=== PATIENT | female | born 1940 | race Caucasian/White ===

== ENCOUNTER 2021-04-09 12:09 | Inpatient (IN) | payer MEDICARE ==
[2021-04-09 15:33] VITALS: BMI 37.2
[2021-04-09] MEDS ORDERED: hydrALAZINE 20 MG/ML VIAL SLOW IVP PRN (15:52)
[2021-04-09 16:54] LABS: #Monocytes 0.5 thou/uL (0.11-0.59); #Neutrophils 4.2 thou/uL (1.40-6.50); %Basophils 0.2 % (0.0-1.0); %Eosinophils 0.7 % (0.0-10.0); %Lymphocytes 17.3 % (21.0-51.0); %Monocytes 8.3 % (0.0-10.0); %Neutrophils 73.5 % (42.0-75.0); Hemoglobin 14.3 g/dL (12.0-16.0); Mean Corpuscular HGB CONC 33.2 g/dL (32.0-36.0); Mean Platelet Volume 8.1 fL (7.4-10.4); Platelet Count 156 thou/uL (130-400); RBC Distribution Width 11.8 % (11.5-14.5); Red Blood Cell (RBC) Count 3.99 mill/uL (4.20-5.40); White Blood Cell (WBC) Count 5.8 thou/uL (4.8-10.8)
[2021-04-09 17:04] LABS: INR-International Normal Ratio 1.7; PTT 38.6 sec (22.9-36.1); Prothrombin Time 19.9 sec (12.0-14.7)
[2021-04-09 17:15] LABS: Anion Gap 12 mmol/L (10-20); BUN (Urea Nitrogen) 11 mg/dL (9.8-20.1); Calc. Creatinine Clearance 86 mL/min (70-130); Calcium 9.4 mg/dL (7.8-10.44); Carbon Dioxide 21 mmol/L (23-31); Chloride 109 mmol/L (98-107); Glucose 111 mg/dL (83-110); MDiff Complete? YES; Macrocytosis SLIGHT = 6-15 cells (100X) (0-5/hpf); Magnesium 2.1 mg/dL (1.6-2.6); Phosphorus 2.8 mg/dL (2.3-4.7); Platelet Morphology Comment Appears Adequate; Sodium 138 mmol/L (136-145)
[2021-04-09] MEDS: Acetaminophen 500 MG TAB PO SCH ×2 (17:28→21:01)
[2021-04-09] MEDS ORDERED: Nitroglycerin 0.4 MG TAB (25 Tab Bottle) SL PRN (17:31)
[2021-04-09] MEDS ORDERED: Dexamethasone 12 MG in Sodium Chloride 0.9% 50 ML IVPB SCH (20:00)
[2021-04-09] MEDS ORDERED: Famotidine/PF 20 mg/2ml Vial SLOW IVP SCH (21:00)
[2021-04-09] MEDS ORDERED: Metoprolol Tartrate 50 MG TAB PO SCH (21:00)
[2021-04-10] MEDS: Acetaminophen 500 MG TAB PO SCH ×4 (05:41→20:46)
[2021-04-10] MEDS: Levothyroxine Sodium 112 MCG TAB PO SCH (05:55)
[2021-04-10] MEDS: Dexamethasone 4 MG TAB PO SCH ×4 (05:55→23:43)
[2021-04-10 06:24] LABS: #Lymphocytes 0.7 thou/uL (1.20-3.40); #Monocytes 0.1 thou/uL (0.11-0.59); #Neutrophils 3.6 thou/uL (1.40-6.50); %Basophils 0.2 % (0.0-1.0); %Eosinophils 0.1 % (0.0-10.0); %Lymphocytes 15.8 % (21.0-51.0); %Monocytes 1.1 % (0.0-10.0); %Neutrophils 82.8 % (42.0-75.0); Hemoglobin 14.4 g/dL (12.0-16.0); Mean Corpuscular HGB CONC 34.2 g/dL (32.0-36.0); Mean Corpuscular Hemoglobin 36.4 pg (27.0-31.0); Mean Platelet Volume 8.2 fL (7.4-10.4); Platelet Count 155 thou/uL (130-400); RBC Distribution Width 11.7 % (11.5-14.5); Red Blood Cell (RBC) Count 3.97 mill/uL (4.20-5.40); White Blood Cell (WBC) Count 4.3 thou/uL (4.8-10.8)
[2021-04-10 06:44] LABS: Anion Gap 10 mmol/L (10-20); BUN (Urea Nitrogen) 17 mg/dL (9.8-20.1); Calc. Creatinine Clearance 82 mL/min (70-130); Calcium 9.3 mg/dL (7.8-10.44); Carbon Dioxide 23 mmol/L (23-31); Chloride 107 mmol/L (98-107); Glucose 145 mg/dL (83-110); Potassium 4.2 mmol/L (3.5-5.1); Sodium 136 mmol/L (136-145)
[2021-04-10] MEDS ORDERED: Dexamethasone 4 MG TAB PO SCH (08:00)
[2021-04-10] MEDS: Metoprolol Tartrate 50 MG TAB PO SCH ×2 (09:27→20:47)
[2021-04-10] MEDS: Furosemide 40 MG TAB PO SCH (09:28)
[2021-04-10] MEDS: Potassium Chloride 20 MEQ TAB PO SCH (09:28)
[2021-04-10] MEDS: Pantoprazole 40 MG VIAL IVP SCH ×2 (11:25→20:47)
[2021-04-10 18:19] LABS: Bacteria/HPF None Seen HPF (None Seen); Bilirubin Negative (Negative); Blood, Urine Trace (Negative); Clarity Clear (Clear); Glucose, Urine (Dipstick) Normal (Negative); Ketone, Urine Negative (Negative); Leukocyte Negative Leu/uL (Negative); Nitrite Negative (Negative); Protein, Urine (Dipstick) Negative (Neg-Trace); RBC/HPF 0-3 HPF (0-3); Squamous Epithelial None Seen HPF (0-3); Urobilinogen Normal mg/dL (Less than 2); WBC/HPF 0-3 HPF (0-3)
[2021-04-10 18:21] LABS: Urine Culture Reflex No No
[2021-04-10] MEDS: Senokot S 8.6-50 MG TAB PO SCH (20:47)
[2021-04-11] MEDS: Acetaminophen 500 MG TAB PO SCH ×4 (05:21→20:29)
[2021-04-11] MEDS: Levothyroxine Sodium 112 MCG TAB PO SCH (05:22)
[2021-04-11] MEDS: Dexamethasone 4 MG TAB PO SCH ×4 (05:22→23:15)
[2021-04-11] MEDS: Furosemide 40 MG TAB PO SCH (09:38)
[2021-04-11] MEDS: Senokot S 8.6-50 MG TAB PO SCH ×2 (09:38→20:28)
[2021-04-11] MEDS: Potassium Chloride 20 MEQ TAB PO SCH (09:38)
[2021-04-11] MEDS: Metoprolol Tartrate 50 MG TAB PO SCH ×2 (09:38→20:28)
[2021-04-11] MEDS: Pantoprazole 40 MG VIAL IVP SCH (09:39)
[2021-04-11] MEDS: Polyethylene Glycol 3350 17 GM Packet PO SCH (09:39)
[2021-04-11 13:00] LABS: INR-International Normal Ratio 1.2; Prothrombin Time 15.4 sec (12.0-14.7)
[2021-04-12] MEDS: Acetaminophen 500 MG TAB PO SCH ×4 (05:01→20:49)
[2021-04-12] MEDS: Dexamethasone 4 MG TAB PO SCH ×3 (05:01→17:36)
[2021-04-12] MEDS: Levothyroxine Sodium 112 MCG TAB PO SCH (05:01)
[2021-04-12 06:56] LABS: INR-International Normal Ratio 1.1; PTT 28.3 sec (22.9-36.1); Prothrombin Time 14.7 sec (12.0-14.7)
[2021-04-12] MEDS: Polyethylene Glycol 3350 17 GM Packet PO SCH (09:31)
[2021-04-12] MEDS: Potassium Chloride 20 MEQ TAB PO SCH (09:31)
[2021-04-12] MEDS: Metoprolol Tartrate 50 MG TAB PO SCH ×2 (09:31→20:49)
[2021-04-12] MEDS: Furosemide 40 MG TAB PO SCH (09:31)
[2021-04-12] MEDS: Senokot S 8.6-50 MG TAB PO SCH ×2 (09:31→20:49)
[2021-04-12] MEDS ORDERED: Bisacodyl 10 MG SUPP PR PRN (11:23)
[2021-04-12] MEDS: Ondansetron PF 4 MG/2 ML Vial IVP PRN (14:33)
[2021-04-12] MEDS ORDERED: Mineral Oil ENEMA PR SCH (21:45)
[2021-04-13] MEDS: Dexamethasone 4 MG TAB PO SCH ×5 (00:38→23:43)
[2021-04-13] MEDS: Acetaminophen 500 MG TAB PO SCH ×4 (04:54→21:15)
[2021-04-13] MEDS: Levothyroxine Sodium 112 MCG TAB PO SCH (04:55)
[2021-04-13 06:10] LABS: #Lymphocytes 0.6 thou/uL (1.20-3.40); #Monocytes 0.7 thou/uL (0.11-0.59); #Neutrophils 9.8 thou/uL (1.40-6.50); %Basophils 0.1 % (0.0-1.0); %Eosinophils 0.2 % (0.0-10.0); %Lymphocytes 5.7 % (21.0-51.0); %Monocytes 5.8 % (0.0-10.0); %Neutrophils 88.1 % (42.0-75.0); Hemoglobin 14.5 g/dL (12.0-16.0); Mean Corpuscular HGB CONC 33.1 g/dL (32.0-36.0); Mean Corpuscular Hemoglobin 35.3 pg (27.0-31.0); Mean Platelet Volume 8.6 fL (7.4-10.4); Platelet Count 197 thou/uL (130-400); RBC Distribution Width 11.7 % (11.5-14.5); Red Blood Cell (RBC) Count 4.11 mill/uL (4.20-5.40); White Blood Cell (WBC) Count 11.1 thou/uL (4.8-10.8)
[2021-04-13 06:19] LABS: INR-International Normal Ratio 1.1; PTT 26.6 sec (22.9-36.1); Prothrombin Time 14.6 sec (12.0-14.7)
[2021-04-13 06:29] LABS: Anion Gap 10 mmol/L (10-20); BUN (Urea Nitrogen) 33 mg/dL (9.8-20.1); Calc. Creatinine Clearance 60 mL/min (70-130); Calcium 8.9 mg/dL (7.8-10.44); Carbon Dioxide 27 mmol/L (23-31); Chloride 103 mmol/L (98-107); Glucose 129 mg/dL (83-110); Magnesium 2.3 mg/dL (1.6-2.6); Phosphorus 3.5 mg/dL (2.3-4.7); Potassium 4.1 mmol/L (3.5-5.1); Sodium 136 mmol/L (136-145)
[2021-04-13] MEDS: Furosemide 40 MG TAB PO SCH (09:03)
[2021-04-13] MEDS: Senokot S 8.6-50 MG TAB PO SCH ×2 (09:03→21:15)
[2021-04-13] MEDS: Polyethylene Glycol 3350 17 GM Packet PO SCH (09:03)
[2021-04-13] MEDS: Metoprolol Tartrate 50 MG TAB PO SCH ×2 (09:03→21:15)
[2021-04-13] MEDS: Potassium Chloride 20 MEQ TAB PO SCH (09:03)
[2021-04-13] MEDS ORDERED: Bisacodyl 10 MG SUPP PR SCH (10:15)
[2021-04-14] MEDS: Acetaminophen 500 MG TAB PO SCH ×2 (04:59→09:08)
[2021-04-14] MEDS: Levothyroxine Sodium 112 MCG TAB PO SCH (05:00)
[2021-04-14] MEDS: Dexamethasone 4 MG TAB PO SCH ×3 (05:00→17:26)
[2021-04-14 06:16] LABS: #Lymphocytes 0.7 thou/uL (1.20-3.40); #Monocytes 0.8 thou/uL (0.11-0.59); #Neutrophils 9.7 thou/uL (1.40-6.50); %Basophils 0.4 % (0.0-1.0); %Eosinophils 0.1 % (0.0-10.0); %Lymphocytes 6.6 % (21.0-51.0); %Monocytes 6.8 % (0.0-10.0); %Neutrophils 86.2 % (42.0-75.0); Hemoglobin 15.1 g/dL (12.0-16.0); Mean Corpuscular HGB CONC 33.2 g/dL (32.0-36.0); Mean Corpuscular Hemoglobin 35.5 pg (27.0-31.0); Mean Platelet Volume 8.6 fL (7.4-10.4); Platelet Count 188 thou/uL (130-400); RBC Distribution Width 11.5 % (11.5-14.5); Red Blood Cell (RBC) Count 4.25 mill/uL (4.20-5.40); White Blood Cell (WBC) Count 11.2 thou/uL (4.8-10.8)
[2021-04-14 06:24] LABS: Phosphorus 3.4 mg/dL (2.3-4.7)
[2021-04-14 06:26] LABS: Anion Gap 14 mmol/L (10-20); BUN (Urea Nitrogen) 32 mg/dL (9.8-20.1); Calc. Creatinine Clearance 62 mL/min (70-130); Calcium 8.8 mg/dL (7.8-10.44); Carbon Dioxide 26 mmol/L (23-31); Chloride 100 mmol/L (98-107); Glucose 142 mg/dL (83-110); Magnesium 2.5 mg/dL (1.6-2.6); Potassium 4.2 mmol/L (3.5-5.1); Sodium 136 mmol/L (136-145)
[2021-04-14] MEDS ORDERED: Acetaminophen/Codeine 30-300mg Tablet PO PRN (08:03)
[2021-04-14] MEDS ORDERED: HYDROcodone/Acetaminophen 7.5/325 mg Tablet PO PRN (08:04)
[2021-04-14] MEDS ORDERED: HYDROcodone/Acetaminophen 10/325 mg Tablet PO PRN (08:05)
[2021-04-14] MEDS: Bisacodyl 10 MG SUPP PR SCH (09:08)
[2021-04-14] MEDS: Metoprolol Tartrate 50 MG TAB PO SCH ×2 (09:08→21:33)
[2021-04-14] MEDS: Polyethylene Glycol 3350 17 GM Packet PO SCH (09:08)
[2021-04-14] MEDS: Senokot S 8.6-50 MG TAB PO SCH ×2 (09:08→21:34)
[2021-04-14] MEDS: Acetaminophen 325 MG TAB PO SCH ×3 (09:49→21:33)
[2021-04-14] MEDS: Ondansetron PF 4 MG/2 ML Vial IVP PRN (11:01)
[2021-04-14] MEDS: CEFAZOLIN 2 GM, IV Admixture Fee-Chemo 1 UNITS in Sodium Chloride 0.9% 100 ML IVPB SCH ×2 (15:16→21:34)
[2021-04-14] MEDS ORDERED: Sodium Chloride 0.9% 1,000 ML IV SCH (23:00)
[2021-04-15] MEDS: Dexamethasone 4 MG TAB PO SCH ×5 (00:21→23:30)
[2021-04-15] MEDS: hydrALAZINE 20 MG/ML VIAL SLOW IVP PRN ×2 (04:13→14:50)
[2021-04-15] MEDS: Acetaminophen 325 MG TAB PO SCH ×3 (04:14→17:07)
[2021-04-15] MEDS ORDERED: CEFAZOLIN 2 GM, Admixture Fee 1 EACH in Sodium Chloride 0.9% 100 ML IVPB SCH (06:00)
[2021-04-15] MEDS ORDERED: EPINEPHrine 1 MG/ML AMP ONE (06:13)
[2021-04-15] MEDS ORDERED: Bacitracin Zinc Ointment 30 gm TUBE ONE (06:13)
[2021-04-15] MEDS ORDERED: Neomycin-Polymyxin 1 ML AMP ONE (06:13)
[2021-04-15] MEDS ORDERED: Thrombin 5000 UNITS/5 ML VIAL ONE (06:13)
[2021-04-15] MEDS ORDERED: Bupivacaine PF 0.5% 30 ML VIAL ONE (06:13)
[2021-04-15] MEDS: Levothyroxine Sodium 112 MCG TAB PO SCH (06:16)
[2021-04-15 06:40] LABS: #Basophils 0.1 thou/uL (0.0-0.2); #Lymphocytes 0.6 thou/uL (1.20-3.40); #Monocytes 0.7 thou/uL (0.11-0.59); #Neutrophils 10.8 thou/uL (1.40-6.50); %Eosinophils 0.1 % (0.0-10.0); %Lymphocytes 4.7 % (21.0-51.0); %Monocytes 5.6 % (0.0-10.0); %Neutrophils 88.6 % (42.0-75.0); Hemoglobin 16.4 g/dL (12.0-16.0); Mean Corpuscular HGB CONC 33.5 g/dL (32.0-36.0); Mean Corpuscular Hemoglobin 35.2 pg (27.0-31.0); Mean Platelet Volume 9.2 fL (7.4-10.4); Platelet Count 156 thou/uL (130-400); RBC Distribution Width 11.6 % (11.5-14.5); Red Blood Cell (RBC) Count 4.67 mill/uL (4.20-5.40); White Blood Cell (WBC) Count 12.2 thou/uL (4.8-10.8)
[2021-04-15 06:59] LABS: Phosphorus 3.1 mg/dL (2.3-4.7)
[2021-04-15 07:02] LABS: Anion Gap 14 mmol/L (10-20); BUN (Urea Nitrogen) 28 mg/dL (9.8-20.1); Calc. Creatinine Clearance 69 mL/min (70-130); Calcium 8.9 mg/dL (7.8-10.44); Carbon Dioxide 22 mmol/L (23-31); Chloride 104 mmol/L (98-107); Glucose 138 mg/dL (83-110); Magnesium 2.6 mg/dL (1.6-2.6); Potassium 3.9 mmol/L (3.5-5.1); Sodium 136 mmol/L (136-145)
[2021-04-15] MEDS ORDERED: PROPOFOL 200 MG/20 ML VIAL ONE (07:11)
[2021-04-15] MEDS ORDERED: Dexamethasone 20 MG/5 ML VIAL ONE (07:11)
[2021-04-15] MEDS ORDERED: Rocuronium Bromide 10 MG/ML (10ML VIAL) ONE (07:11)
[2021-04-15] MEDS ORDERED: Esmolol 100 MG/10 ML VIAL ONE (07:11)
[2021-04-15] MEDS ORDERED: Phenylephrine 10 MG/ML VIAL ONE (07:11)
[2021-04-15] MEDS ORDERED: Glycopyrrolate 0.2 MG/ML 5 ML SYRINGE ONE (07:11)
[2021-04-15] MEDS ORDERED: Lidocaine 1% PF 5 ML VIAL ONE (07:11)
[2021-04-15] MEDS ORDERED: Ondansetron PF 4 MG/2 ML Vial ONE (07:11)
[2021-04-15] MEDS: CEFAZOLIN 2 GM, IV Admixture Fee-Chemo 1 UNITS in Sodium Chloride 0.9% 100 ML IVPB SCH (07:35)
[2021-04-15] MEDS ORDERED: Sodium Chloride 0.9% 1,000 ML IV SCH ×3 (07:40→23:00)
[2021-04-15] MEDS ORDERED: Fentanyl 100 MCG/2 ML VIAL ONE ×2 (07:48→10:03)
[2021-04-15] MEDS: Bisacodyl 10 MG SUPP PR SCH (08:34)
[2021-04-15] MEDS: Metoprolol Tartrate 50 MG TAB PO SCH ×2 (08:35→19:41)
[2021-04-15] MEDS: Polyethylene Glycol 3350 17 GM Packet PO SCH (08:36)
[2021-04-15] MEDS: Senokot S 8.6-50 MG TAB PO SCH ×2 (08:36→19:41)
[2021-04-15] MEDS ORDERED: HYDROmorphone 2 MG/ML VIAL SLOW IVP PRN (08:43)
[2021-04-15] MEDS ORDERED: Promethazine HCl 25 MG/ML VIAL IVPB PRN (08:43)
[2021-04-15] MEDS ORDERED: Ondansetron HCl/PF 4 MG/2 ML Vial IVP PRN (08:43)
[2021-04-15] MEDS ORDERED: Promethazine HCl 25 MG/ML VIAL IM PRN (08:43)
[2021-04-15] MEDS ORDERED: Potassium Phosphate 15 MMOL in Sodium Chloride 0.9% 250 ML 250 ML IVPB SCH (09:00)
[2021-04-15] MEDS ORDERED: Acetaminophen/Codeine 30-300mg Tablet PO PRN ×2 (09:15→12:00)
[2021-04-15] MEDS ORDERED: SUGAMMADEX SODIUM 200 MG/2 ML VIAL ONE (09:34)
[2021-04-15] MEDS ORDERED: Metoprolol Tartrate 5 MG/5 ML VIAL ONE (10:21)
[2021-04-15] MEDS ORDERED: HYDROmorphone 2 MG/ML VIAL ONE (10:21)
[2021-04-15] MEDS ORDERED: hydrALAZINE 20 MG/ML VIAL ONE (11:01)
[2021-04-15] MEDS ORDERED: Promethazine HCl 25 MG/ML VIAL ONE (11:08)
[2021-04-15] MEDS: Sodium Chloride 0.9% 1,000 ML IV SCH ×3 (11:08→19:40)
[2021-04-15] MEDS ORDERED: Scopolamine 1.5 mg/72 hour Patch ONE (11:14)
[2021-04-15] MEDS ORDERED: HYDROcodone/Acetaminophen 7.5/325 mg Tablet PO PRN (12:00)
[2021-04-15] MEDS ORDERED: HYDROcodone/Acetaminophen 10/325 mg Tablet PO PRN (12:00)
[2021-04-15] MEDS: ceFAZolin Sodium/D5W 2 GM in Premix Bag 1 BAG IVPB SCH ×2 (14:43→19:41)
[2021-04-15] MEDS ORDERED: ceFAZolin 2 GM/DEX 5% 100 ML BAG IVPB SCH (16:00)
[2021-04-15] MEDS ORDERED: Acetaminophen 500 MG TAB PO SCH (19:00)
[2021-04-15] MEDS ORDERED: Acetaminophen/Codeine 30-300mg Tablet PO SCH (19:00)
[2021-04-15] MEDS: Acetaminophen 500 MG TAB PO SCH (23:30)
[2021-04-15] MEDS: Acetaminophen/Codeine 30-300mg Tablet PO SCH (23:30)
[2021-04-16] MEDS: Acetaminophen/Codeine 30-300mg Tablet PO SCH ×4 (05:09→23:00)
[2021-04-16] MEDS: Acetaminophen 500 MG TAB PO SCH ×4 (05:09→23:00)
[2021-04-16] MEDS: Dexamethasone 4 MG TAB PO SCH (05:09)
[2021-04-16] MEDS: Levothyroxine Sodium 112 MCG TAB PO SCH (05:10)
[2021-04-16 05:36] LABS: Anion Gap 13 mmol/L (10-20); BUN (Urea Nitrogen) 26 mg/dL (9.8-20.1); Calc. Creatinine Clearance 79 mL/min (70-130); Calcium 8.1 mg/dL (7.8-10.44); Carbon Dioxide 22 mmol/L (23-31); Chloride 105 mmol/L (98-107); Glucose 124 mg/dL (83-110); Magnesium 2.5 mg/dL (1.6-2.6); Phosphorus 3.5 mg/dL (2.3-4.7); Potassium 4.2 mmol/L (3.5-5.1); Sodium 136 mmol/L (136-145)
[2021-04-16 05:54] LABS: #Lymphocytes 0.7 thou/uL (1.20-3.40); #Monocytes 1.6 thou/uL (0.11-0.59); #Neutrophils 16.5 thou/uL (1.40-6.50); %Eosinophils 0.1 % (0.0-10.0); %Lymphocytes 3.8 % (21.0-51.0); %Monocytes 8.5 % (0.0-10.0); %Neutrophils 87.6 % (42.0-75.0); Hemoglobin 14.9 g/dL (12.0-16.0); Mean Corpuscular Hemoglobin 34.8 pg (27.0-31.0); Mean Platelet Volume 8.7 fL (7.4-10.4); Platelet Count 94 thou/uL (130-400); Platelet Morphology Comment Appears Decreased; RBC Distribution Width 11.6 % (11.5-14.5); Red Blood Cell (RBC) Count 4.28 mill/uL (4.20-5.40); White Blood Cell (WBC) Count 18.8 thou/uL (4.8-10.8)
[2021-04-16] MEDS: Polyethylene Glycol 3350 17 GM Packet PO SCH (09:00)
[2021-04-16] MEDS: Bisacodyl 10 MG SUPP PR SCH (09:00)
[2021-04-16] MEDS: Metoprolol Tartrate 50 MG TAB PO SCH ×2 (09:00→20:27)
[2021-04-16] MEDS: Senokot S 8.6-50 MG TAB PO SCH ×2 (09:00→20:27)
[2021-04-16] MEDS: Dexamethasone 1 MG TAB PO SCH ×4 (10:53→20:26)
[2021-04-16] MEDS: Sodium Chloride 0.9% 1,000 ML IV SCH (16:08)
[2021-04-16] MEDS: tiZANidine HCl 4 MG TAB PO PRN (23:28)
[2021-04-16] MEDS: hydrALAZINE 20 MG/ML VIAL SLOW IVP PRN (23:37)
[2021-04-17] MEDS: Sodium Chloride 0.9% 1,000 ML IV SCH ×2 (00:56→13:47)
[2021-04-17] MEDS: Acetaminophen 500 MG TAB PO SCH ×3 (04:48→17:23)
[2021-04-17] MEDS: Acetaminophen/Codeine 30-300mg Tablet PO SCH ×3 (04:48→18:45)
[2021-04-17] MEDS: Levothyroxine Sodium 112 MCG TAB PO SCH (05:49)
[2021-04-17 06:08] LABS: #Lymphocytes 0.8 thou/uL (1.20-3.40); #Monocytes 1.2 thou/uL (0.11-0.59); #Neutrophils 9.5 thou/uL (1.40-6.50); %Basophils 0.1 % (0.0-1.0); %Eosinophils 0.1 % (0.0-10.0); %Lymphocytes 6.6 % (21.0-51.0); %Monocytes 10.1 % (0.0-10.0); Hemoglobin 13.1 g/dL (12.0-16.0); Mean Corpuscular HGB CONC 32.4 g/dL (32.0-36.0); Mean Corpuscular Hemoglobin 34.8 pg (27.0-31.0); Mean Platelet Volume 9.5 fL (7.4-10.4); Platelet Count 79 thou/uL (130-400); RBC Distribution Width 11.7 % (11.5-14.5); Red Blood Cell (RBC) Count 3.77 mill/uL (4.20-5.40); White Blood Cell (WBC) Count 11.5 thou/uL (4.8-10.8)
[2021-04-17 06:41] LABS: Anion Gap 10 mmol/L (10-20); BUN (Urea Nitrogen) 27 mg/dL (9.8-20.1); Calc. Creatinine Clearance 92 mL/min (70-130); Calcium 8.2 mg/dL (7.8-10.44); Carbon Dioxide 23 mmol/L (23-31); Chloride 108 mmol/L (98-107); Glucose 119 mg/dL (83-110); Magnesium 2.6 mg/dL (1.6-2.6); Phosphorus 2.3 mg/dL (2.3-4.7); Potassium 4.3 mmol/L (3.5-5.1); Sodium 137 mmol/L (136-145)
[2021-04-17] MEDS: Polyethylene Glycol 3350 17 GM Packet PO SCH (08:50)
[2021-04-17] MEDS: Dexamethasone 1 MG TAB PO SCH ×4 (08:50→20:39)
[2021-04-17] MEDS: Senokot S 8.6-50 MG TAB PO SCH ×2 (08:50→20:39)
[2021-04-17] MEDS: Bisacodyl 10 MG SUPP PR SCH (08:55)
[2021-04-17] MEDS: tiZANidine HCl 4 MG TAB PO PRN (08:55)
[2021-04-17] MEDS: Metoprolol Tartrate 50 MG TAB PO SCH ×3 (08:55→20:39)
[2021-04-18] MEDS: Acetaminophen 500 MG TAB PO SCH ×4 (00:01→17:04)
[2021-04-18] MEDS: Acetaminophen/Codeine 30-300mg Tablet PO SCH ×4 (00:01→17:05)
[2021-04-18 05:46] LABS: #Lymphocytes 0.7 thou/uL (1.20-3.40); #Monocytes 0.7 thou/uL (0.11-0.59); #Neutrophils 6.7 thou/uL (1.40-6.50); %Eosinophils 0.2 % (0.0-10.0); %Lymphocytes 8.2 % (21.0-51.0); %Monocytes 8.8 % (0.0-10.0); %Neutrophils 82.7 % (42.0-75.0); Hemoglobin 13.2 g/dL (12.0-16.0); Mean Corpuscular HGB CONC 31.3 g/dL (32.0-36.0); Mean Corpuscular Hemoglobin 34.4 pg (27.0-31.0); Mean Platelet Volume 9.1 fL (7.4-10.4); Platelet Count 73 thou/uL (130-400); RBC Distribution Width 11.6 % (11.5-14.5); Red Blood Cell (RBC) Count 3.85 mill/uL (4.20-5.40); White Blood Cell (WBC) Count 8.1 thou/uL (4.8-10.8)
[2021-04-18] MEDS: Sodium Chloride 0.9% 1,000 ML IV SCH ×3 (05:48→15:34)
[2021-04-18] MEDS: Levothyroxine Sodium 112 MCG TAB PO SCH (05:49)
[2021-04-18] MEDS: Polyethylene Glycol 3350 17 GM Packet PO SCH (08:31)
[2021-04-18] MEDS: Dexamethasone 1 MG TAB PO SCH ×2 (08:31→15:33)
[2021-04-18] MEDS: Senokot S 8.6-50 MG TAB PO SCH ×2 (08:31→20:38)
[2021-04-18] MEDS: Metoprolol Tartrate 50 MG TAB PO SCH ×2 (08:31→20:38)
[2021-04-18] MEDS: Bisacodyl 10 MG SUPP PR SCH (08:32)
[2021-04-18] MEDS: hydrALAZINE 20 MG/ML VIAL SLOW IVP PRN (12:42)
[2021-04-18] MEDS ORDERED: Rivaroxaban 10 MG TAB PO SCH (21:00)
[2021-04-19] MEDS: Acetaminophen 500 MG TAB PO SCH ×4 (00:46→17:31)
[2021-04-19] MEDS: Acetaminophen/Codeine 30-300mg Tablet PO SCH ×4 (00:48→17:34)
[2021-04-19] MEDS: Sodium Chloride 0.9% 1,000 ML IV SCH (02:43)
[2021-04-19] MEDS: Levothyroxine Sodium 112 MCG TAB PO SCH (05:52)
[2021-04-19] MEDS: hydrALAZINE 20 MG/ML VIAL SLOW IVP PRN (06:36)
[2021-04-19 07:48] LABS: Troponin I 0.011 ng/mL (< 0.028)
[2021-04-19] MEDS: Dexamethasone 1 MG TAB PO SCH ×2 (08:44→17:32)
[2021-04-19] MEDS: Metoprolol Tartrate 50 MG TAB PO SCH ×2 (08:45→20:43)
[2021-04-19] MEDS: Bisacodyl 10 MG SUPP PR SCH (08:45)
[2021-04-19] MEDS: Polyethylene Glycol 3350 17 GM Packet PO SCH (08:45)
[2021-04-19] MEDS: Senokot S 8.6-50 MG TAB PO SCH ×2 (08:45→20:45)
[2021-04-19] MEDS: Ondansetron PF 4 MG/2 ML Vial IVP PRN (08:50)
[2021-04-19 09:28] LABS: Actual Bicarbonate (HCO3a) 19.4 mEq/L (22-28); Calcium, Ionized (arterial) 1.14 mmol/L (1.12-1.30); Carboxyhemoglobin (COHb) 0.4 gm% (0.0-3.0); Hemoglobin (Hb) 13.7 g/dL (12.0-16.0); O2 Tension (PaO2), arterial 103.8 mmHg (> 60.0); Potassium - ABG Lab 4.18 mmol/L (3.70-5.30); pH, Arterial 7.51 (7.35-7.45)
[2021-04-19 09:29] LABS: CO2 Tension 25.2 mmHg (35.0-45.0); Puncture Site RBA
[2021-04-19 09:41] LABS: Bacteria/HPF None Seen HPF (None Seen); Bilirubin Negative (Negative); Blood, Urine Negative (Negative); Clarity Clear (Clear); Glucose, Urine (Dipstick) 50 mg/dL (Negative); Ketone, Urine Negative (Negative); Leukocyte Negative Leu/uL (Negative); Nitrite Negative (Negative); Protein, Urine (Dipstick) Negative (Neg-Trace); RBC/HPF 0-3 HPF (0-3); Specific Gravity, Urine 1.022 (1.002-1.036); Squamous Epithelial 0-3 HPF (0-3); Urobilinogen Normal mg/dL (Less than 2); WBC/HPF 0-3 HPF (0-3)
[2021-04-19 09:42] LABS: #Lymphocytes 1.2 thou/uL (1.20-3.40); #Monocytes 1.6 thou/uL (0.11-0.59); #Neutrophils 10.1 thou/uL (1.40-6.50); %Basophils 0.1 % (0.0-1.0); %Eosinophils 0.4 % (0.0-10.0); %Lymphocytes 9.4 % (21.0-51.0); %Monocytes 12.5 % (0.0-10.0); %Neutrophils 77.7 % (42.0-75.0); Hemoglobin 13.6 g/dL (12.0-16.0); Mean Corpuscular HGB CONC 33.2 g/dL (32.0-36.0); Mean Platelet Volume 8.9 fL (7.4-10.4); Platelet Count 122 thou/uL (130-400); RBC Distribution Width 11.5 % (11.5-14.5)
[2021-04-19 09:44] LABS: Urine Culture Reflex No No
[2021-04-19 09:49] LABS: Band 3 % (5-11); Eosinophils 1 % (0-10); Lymphocytes 8 % (21-51); MDiff Complete? YES; Macrocytosis SLIGHT = 6-15 cells (100X) (0-5/hpf); Metamyelocyte 1 % (0-0); Monocytes 5 % (0-10); Neutrophil 82 % (42-75); Platelet Morphology Comment Appears Decreased; Polychromasia SLIGHT = 2-3 cells (100X) (0-2/hpf)
[2021-04-19] MEDS: Gabapentin 100 MG CAP PO SCH ×2 (15:00→20:42)
[2021-04-20] MEDS: Acetaminophen 500 MG TAB PO SCH ×4 (00:28→17:26)
[2021-04-20] MEDS: Acetaminophen/Codeine 30-300mg Tablet PO SCH ×4 (00:32→17:25)
[2021-04-20] MEDS ORDERED: Haloperidol Lactate 5 MG/ML VIAL SLOW IVP SCH (02:00)
[2021-04-20] MEDS ORDERED: Haloperidol Lactate 5 MG/ML VIAL IM SCH (02:17)
[2021-04-20] MEDS: Levothyroxine Sodium 112 MCG TAB PO SCH (05:53)
[2021-04-20 07:49] LABS: #Eosinphils 0.1 thou/uL (0.0-0.7); #Lymphocytes 0.9 thou/uL (1.20-3.40); #Monocytes 1.1 thou/uL (0.11-0.59); #Neutrophils 7.2 thou/uL (1.40-6.50); %Basophils 0.3 % (0.0-1.0); %Eosinophils 1.3 % (0.0-10.0); %Monocytes 11.5 % (0.0-10.0); %Neutrophils 76.9 % (42.0-75.0); Hemoglobin 12.4 g/dL (12.0-16.0); Mean Corpuscular HGB CONC 33.5 g/dL (32.0-36.0); Mean Corpuscular Hemoglobin 36.2 pg (27.0-31.0); Mean Platelet Volume 8.5 fL (7.4-10.4); Platelet Count 95 thou/uL (130-400); RBC Distribution Width 11.6 % (11.5-14.5); Red Blood Cell (RBC) Count 3.43 mill/uL (4.20-5.40); White Blood Cell (WBC) Count 9.4 thou/uL (4.8-10.8)
[2021-04-20 08:01] LABS: Anion Gap 11 mmol/L (10-20); BUN (Urea Nitrogen) 17 mg/dL (9.8-20.1); Calc. Creatinine Clearance 97 mL/min (70-130); Carbon Dioxide 20 mmol/L (23-31); Chloride 111 mmol/L (98-107); Glucose 99 mg/dL (83-110); Phosphorus 2.1 mg/dL (2.3-4.7); Potassium 4.1 mmol/L (3.5-5.1); Sodium 138 mmol/L (136-145)
[2021-04-20 08:53] LABS: MDiff Complete? YES; Macrocytosis SLIGHT = 6-15 cells (100X) (0-5/hpf); Platelet Morphology Comment Appears Decreased; Polychromasia SLIGHT = 2-3 cells (100X) (0-2/hpf)
[2021-04-20] MEDS: Polyethylene Glycol 3350 17 GM Packet PO SCH (09:09)
[2021-04-20] MEDS: Senokot S 8.6-50 MG TAB PO SCH ×2 (09:09→21:09)
[2021-04-20] MEDS: Gabapentin 100 MG CAP PO SCH ×3 (09:09→21:09)
[2021-04-20] MEDS: Metoprolol Tartrate 50 MG TAB PO SCH ×2 (09:09→21:09)
[2021-04-20] MEDS ORDERED: Furosemide 20 MG/2 ML VIAL SLOW IVP SCH (10:30)
[2021-04-20] MEDS: Potassium Phosphate 30 MMOL in Sodium Chloride 0.9% 250 ML 250 ML IVPB SCH ×2 (11:37→14:40)
[2021-04-20] MEDS ORDERED: PHOS-NAK 1 PKT PACK PO SCH (13:00)
[2021-04-20] MEDS: PHOS-NAK 1 PKT PACK PO SCH (21:09)
[2021-04-21] MEDS: Acetaminophen/Codeine 30-300mg Tablet PO SCH ×5 (01:20→23:42)
[2021-04-21] MEDS: Acetaminophen 500 MG TAB PO SCH ×5 (01:20→23:27)
[2021-04-21 05:51] LABS: #Eosinphils 0.2 thou/uL (0.0-0.7); #Lymphocytes 1.2 thou/uL (1.20-3.40); #Monocytes 1.1 thou/uL (0.11-0.59); #Neutrophils 7.8 thou/uL (1.40-6.50); %Eosinophils 2.2 % (0.0-10.0); %Lymphocytes 11.9 % (21.0-51.0); %Monocytes 10.3 % (0.0-10.0); %Neutrophils 75.5 % (42.0-75.0); Hemoglobin 13.4 g/dL (12.0-16.0); Mean Corpuscular HGB CONC 31.6 g/dL (32.0-36.0); Mean Corpuscular Hemoglobin 33.7 pg (27.0-31.0); Mean Platelet Volume 8.2 fL (7.4-10.4); Platelet Count 98 thou/uL (130-400); RBC Distribution Width 11.7 % (11.5-14.5); Red Blood Cell (RBC) Count 3.98 mill/uL (4.20-5.40); White Blood Cell (WBC) Count 10.4 thou/uL (4.8-10.8)
[2021-04-21] MEDS: Levothyroxine Sodium 112 MCG TAB PO SCH (06:04)
[2021-04-21 06:11] LABS: Anion Gap 5 mmol/L (10-20); BUN (Urea Nitrogen) 15 mg/dL (9.8-20.1); Calc. Creatinine Clearance 93 mL/min (70-130); Calcium 8.2 mg/dL (7.8-10.44); Carbon Dioxide 29 mmol/L (23-31); Chloride 106 mmol/L (98-107); Glucose 92 mg/dL (83-110); Phosphorus 3.2 mg/dL (2.3-4.7); Potassium 4.1 mmol/L (3.5-5.1); Sodium 136 mmol/L (136-145)
[2021-04-21] MEDS: PHOS-NAK 1 PKT PACK PO SCH ×2 (08:31→20:37)
[2021-04-21] MEDS: Gabapentin 100 MG CAP PO SCH ×3 (08:31→20:37)
[2021-04-21] MEDS: Metoprolol Tartrate 50 MG TAB PO SCH ×2 (08:31→20:37)
[2021-04-21] MEDS: Senokot S 8.6-50 MG TAB PO SCH ×2 (08:32→20:38)
[2021-04-21] MEDS: Polyethylene Glycol 3350 17 GM Packet PO SCH (08:32)
[2021-04-22] MEDS: Acetaminophen 500 MG TAB PO SCH (04:50)
[2021-04-22] MEDS: Levothyroxine Sodium 112 MCG TAB PO SCH (04:50)
[2021-04-22] MEDS: Acetaminophen/Codeine 30-300mg Tablet PO SCH ×3 (06:17→18:49)
[2021-04-22] MEDS ORDERED: Enoxaparin Sodium 40 MG/0.4 ML SYRINGE SC SCH (09:00)
[2021-04-22] MEDS: Polyethylene Glycol 3350 17 GM Packet PO SCH ×2 (10:11→10:22)
[2021-04-22] MEDS: PHOS-NAK 1 PKT PACK PO SCH ×2 (10:12→21:48)
[2021-04-22] MEDS: Metoprolol Tartrate 50 MG TAB PO SCH (10:12)
[2021-04-22] MEDS: Gabapentin 100 MG CAP PO SCH ×3 (10:13→21:47)
[2021-04-22] MEDS: Senokot S 8.6-50 MG TAB PO SCH ×2 (10:21→21:48)
[2021-04-22] MEDS ORDERED: Metoprolol Tartrate 5 MG/5 ML VIAL IVP SCH (11:24)
[2021-04-22] MEDS ORDERED: Haloperidol Lactate 5 MG/ML VIAL SLOW IVP PRN (11:49)
[2021-04-22] MEDS ORDERED: carBAMazepine 200 MG/10 ML UDCUP PO SCH (13:00)
[2021-04-22] MEDS: Acetaminophen 325 MG TAB PO SCH ×2 (13:12→18:49)
[2021-04-22] MEDS ORDERED: Metoprolol Tartrate 25 MG TAB PO SCH (13:54)
[2021-04-22] MEDS ORDERED: Metoprolol Tartrate 50 MG TAB PO SCH (21:00)
[2021-04-22] MEDS ORDERED: Melatonin 3 MG TAB PO SCH (21:00)
[2021-04-22 23:06] VITALS: BP 124/75; TEMP 97.7
== END 2021-04-22 22:20 | DRG 28 ==
LOC: SURG A 15:22
PROVIDERS: ADMIT Surgery; ATTEND Surgery
PROC: 00NW0ZZ Release Cervical Spinal Cord, Open Approach (ICD-10-PCS; principal; 2021-04-15)
DX: S14.123A Central cord syndrome at C3 level of cervical spinal cord, initial encounter (principal); G92.8 Other toxic encephalopathy; N17.9 Acute kidney failure, unspecified; M47.12 Other spondylosis with myelopathy, cervical region; I48.20 Chronic atrial fibrillation, unspecified; W18.30XA Fall on same level, unspecified, initial encounter; S02.2XXA Fracture of nasal bones, initial encounter for closed fracture; E78.00 Pure hypercholesterolemia, unspecified; Z96.659 Presence of unspecified artificial knee joint; I11.0 Hypertensive heart disease with heart failure; I50.9 Heart failure, unspecified; G89.29 Other chronic pain; E03.9 Hypothyroidism, unspecified; N20.0 Calculus of kidney; K57.90 Diverticulosis of intestine, part unspecified, without perforation or abscess without bleeding; K44.9 Diaphragmatic hernia without obstruction or gangrene; K42.9 Umbilical hernia without obstruction or gangrene; R41.0 Disorientation, unspecified; E87.70 Fluid overload, unspecified; Z90.710 Acquired absence of both cervix and uterus; Z90.49 Acquired absence of other specified parts of digestive tract; Z90.11 Acquired absence of right breast and nipple; Z92.3 Personal history of irradiation; Z79.01 Long term (current) use of anticoagulants; Z79.890 Hormone replacement therapy; Z79.899 Other long term (current) drug therapy; Z85.3 Personal history of malignant neoplasm of breast; T38.0X5A Adverse effect of glucocorticoids and synthetic analogues, initial encounter
CPT/HCPCS: 36415; 36600; 71045; 72141; 76000; 80048; 81001; 82805; 83735; 83880; 84100; 84484; 85025; 85610; 85730; 86850; 86900; 86901; 93005; 93010; 93970; C9113; J0171; J0360; J0690; J1100; J1170; J1630; J1650; J1940; J2370; J2405; J2550; J2704; J3010; J3370; J3490; J7050; J8540; S0020